=== PATIENT | female | born 1990 | race Caucasian/White ===

== ENCOUNTER 2017-10-04 18:19 | Emergency (ER) | payer OTHER ==
[~2017-10-04] VITALS: Ht 157.5 cm; Wt 66.7 kg
[2017-10-04 18:26] VITALS: Ht 157.5 cm; Wt 66.7 kg
[2017-10-04 20:01] VITALS: BP 115/77
== END 2017-10-04 20:01 | disposition home or self-care (01) ==
LOC: ED 18:19
DX: J06.9 Acute upper respiratory infection, unspecified (principal)

== ENCOUNTER 2019-10-26 21:14 | Emergency (ER) | payer OTHER ==
[~2019-10-26] VITALS: Ht 157.5 cm; Wt 67.8 kg
[2019-10-26 21:31] VITALS: BP 112/75; Ht 157.5 cm; Wt 67.8 kg
== END 2019-10-26 23:45 | disposition home or self-care (01) ==
LOC: ED 21:14
DX: B34.9 Viral infection, unspecified (principal)
CPT/HCPCS: 87804